=== PATIENT | male | born 1970 | race Caucasian/White ===

== ENCOUNTER 2022-02-26 07:58 | Outpatient (CLI) | payer OTHER, BC, SELFPAY ==
--- NOTE | 2022-02-26 08:15 | MR_ITS ---
[address] [address] Phone:?[phone] Fax:?[phone] Referring Physician Information: Doug Huerta [address] [facility] [address] Phone:?[phone] Fax:?[phone] Patient:Johnie Salazar D.O.B:?1970 Sex:?Male Phone:?[phone] [facility] MRN:?[id number] Exam Date:?02/26/2022 ? EXAM: MRI EXAMINATION OF THE LEFT ELBOW CLINICAL INFORMATION: Left elbow pain. Evaluate common extensor tendon tear. TECHNICAL INFORMATION: Coronal T1 and STIR. Axial, sagittal and coronal PD and T2-weighted images acquired. INTERPRETATION: Bones, joint and osteochondral surfaces: No significant elbow joint effusion. No discrete loose body is seen. No evidence for an occult fracture or osseous contusion. There is a tiny subchondral cyst on series 4 image 13 involving the medial aspect of the radial head. No evidence for a discrete osteochondral lesion. No other abnormal marrow edema pattern identified. Tendons: The biceps, triceps and brachialis tendon insertions are all intact. There is mild to moderate thickening of the common flexor tendon origin. Series 4 images 11 and 12 as well as series 3 images 12 and 13 demonstrate a 0.9 cm AP by 1.2 center craniocaudal poorly defined and low to moderate grade partial- thickness tear involving the tendon origin. Series 3 images 45 and 46 as well as series 4 image 13 demonstrate a 0.6 cm AP by 0.8 cm craniocaudal moderately high-grade partial-thickness tear involving the posterior one half of the common extensor tendon origin. Mild to moderate soft tissue edema signal alongside the posterior aspect of the tendon origin. Ligaments: The ulnar collateral ligament is intact without evidence of acute sprain or tear. The radial collateral and lateral ulnar collateral ligaments appear grossly intact. Nerves: The ulnar nerve appears unremarkable coursing past the elbow and through the cubital tunnel. CONCLUSION: 1. Tendinopathy involves the common extensor tendon origin. This includes a 6 x 8 mm moderately high-grade partial-thickness tear involving the posterior one half of the tendon origin. Mild to moderate adjacent soft tissue inflammatory changes. 2. Tendinopathy with mild to moderate thickening of the common flexor tendon origin. There is a 0.9 x 1.2 cm poorly defined and low to moderate grade partial-thickness tear involving the tendon origin. 3. There is a tiny subchondral cysts involving the radial head, may represent a chronic posttraumatic or early degenerative change. 4. No elbow joint effusion or loose body. KES Electronically signed on 02/26/2022 2:35:00 PM by Van Noble M.D.
== END 2022-02-26 07:59 | disposition home or self-care (01) ==
PROVIDERS: PCP Internal Medicine; Visit Provider Physician Assistant Surgical
DX: M25.522 Pain in left elbow (principal); S46.812A Strain of other muscles, fascia and tendons at shoulder and upper arm level, left arm, initial encounter
CPT/HCPCS: 73221

== ENCOUNTER 2022-05-07 11:00 | Outpatient (RCR) | payer OTHER, BC, SELFPAY ==
--- NOTE | 2022-03-18 17:45 | OT.OPOE ---
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 Fitness no regular fitness Ortho Subjective Subjective Subjective Johnny Salazar is a 52 y/o male who presents w left elbow pain following a work-related injury w initial DOI: 02/05/22. Patient was lifting a 70 lb tote at work, while twisting he felt a sudden, sharp pain in his left elbow. Pain Assessment Pain Present Pain Present Pain Reported Location L elbow Description Throbbing,With Movement, Heaviness Goniometric Comments Goniometric Comments Goniometric Comments AROM WNL for all L SH, elbow, forearm planes. Hyper mobile pattern noted for wrist, can stretch TH tip to touch radius. WR EX is 80 (tender at end range), WR FL to 90, RD 15 ( of 25, with stiffness) and UD 65. Gentle MMT 5/5 EL FL, 4+/5 for triceps tested at multiple angles, Wrist EX in neutral and and radial deviation 4+/5. WE + UD 4+/5. Resisted RD 5 /5. UD 4+/5. Tested automatic buffer and pinch with L hand to 10# limit for pt's educational/insight purposes to support his restrictions. No pain noted Hand Pinch/Time Piece Repairer Strength Hand Right Time Piece Repairer Strength Position 1 (lbs) 97 Lateral Pinch Strength (lbs) 18 Three Point Pinch (lbs) 20 Left Time Piece Repairer Strength Position 1 (lbs) 10 Lateral Pinch Strength (lbs) 10 Three Point Pinch (lbs) 10 Comments Comments Pt gets pain 5-6/10 at left forearm lateral epicondyle/ center point, w gnawing pain, aching after using on steering wheel while doing in lot transitions for light duty . Reduces to 1-2/10 with Advil/Tylenol but will take 3- 4 hours to recover if not taking oral NSAID. (also takes for his feet, knees, back with his heavy labor) Edema Assessment Location Left Edema Type Non-Pitting Degree 1+ Query Text:1+ (Trace) Mild pitting, slight indentation, rapid return to normal 2+ (Mild) Moderate pitting, 4mm indent, rebounds in a few seconds 3+ (Moderate) Deep pitting, 6mm indent, 30 seconds 4+ (Severe) Very deep pitting, 8 mm indent, > 30 seconds to return to normal Edema Appearance Puffy,Stretched Looking Description Subjective Edema Description Pain,Tightness Additional Information Comments L lateral epicondyle, olecranon margin OT Objective Data Hand Hand Dominance Right Sensation Sensation Assessment Summary Comments No senstaion changes or numbness Upper Extremity Special Tests Tenosynovitis Wrist Finklestein Test Negative Left,Negative Right Degenerative Arthritis Hand Trapeziometacarpal Joint Grind Test Negative Left,Negative Right Ulnar Nerve Froment's Sign Negative Left,Negative Right OT Problems Problems Problems Decreased Strength,Decreased Range of Motion,Lifting, Gripping,Pinching Problems Comments decreased safety wtih gripping , lifting, repetitive movements Patient Potential Excellent Assessment Assessment Assessment Pt is an active 52 y/o male who injured L elbow ( at work 02/05/22 with partial tear of common extensor tendon, strain of fascia), who would benefit from skilled OT to address edema, pain, ROM and strength loss of L forearm/elbow with safe progression of activity. Occupational Therapy Treatment Plan - OP Potential Rehabilitation Potential Excellent Set Goals Goals Set with Patient Yes Goals Goals In 8 weeks, Johnny will demonstrate:? 1) Decreased pn to <2/10 80% of the time with sustained gripping, carrying groceries, and carrying 30-50 # loads. 2) I HEP for stretching, gradual strengthening and self mgmt strategies. 3) improved L automatic buffer strength to 85# and pinch to 15# with L elbow pain < 1/10. Progress set Treatment Plan Treatment Plan Evaluation,Joint Mobilization, Manual Therapy,Ultrasound, Therapeutic Exercise,Self-Care /Home Management,Caregiver Training,Education Expected Frequency 1-2x Week Expected Frequency Comments 2x/week x 2 weeks, then 1x/ week x 4 weeks Expected Duration 6-8 Weeks Comment Summary Cont with US, IASSIN, careful progression of resistance eccentric lowering ex to weightbearing, higher resistance. Certification Certification I Certify That: Therapy Services Provided
--- NOTE | 2022-04-16 12:15 | OT.OPODN ---
OT Outpatient Ortho Daily Note OT Outpatient Ortho Daily Note Start: 03/17/22 08:40 Freq: Status: Active Protocol: Document 04/16/22 12:00 TIFFANY (Rec: 04/16/22 12:13 LCN [id number]) E-signed By Radha Garcia OTR/L, CLT Type of Note Type of Note Type of Note Daily Note,Note To MD Visit Number 6 Insurance Information Insurance Information Workman's Comp Outpatient History/Precautions Insurance Information Insurance Information Workman's Comp Current Condition/Medical Diagnosis Referring Provider Antonia Warren PA-C Treatment Diagnosis L elbow pain with partial tear of common extensor tendon, strain of fascia Precautions Lifting Restrictions Other Precautions < 10 # lift, parole hearing officer, pinch Medical/Functional History Medical History Reviewed Yes Social History 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 Fitness no regular fitness Ortho Subjective Subjective Subjective Pt doing well with increase to green therapy band exercises for wrist planes up to 2 sets of 15 reps 1-2x/day. Feels some pulling in his lateral margin of L CET and point tender above Lat epicondyle only during 100% effort gripping with elbow straight, then 3/10 momentary. Other gripping and pinching positions, no pain at all; Kinesiotaping feels helpful. Johnny Salazar is a 52 y/o male who presents w left elbow pain following a work-related injury w initial DOI: 02/05/22. Patient was lifting a 70 lb tote at work, while twisting he felt a sudden, sharp pain in his left elbow. Pain Assessment Pain Present Pain Present Pain Reported Location L elbow Description Throbbing,Chronic,With Movement,Heaviness Intensity 2 OT OP Daily Ortho Note/Assessment Self-Care/Home Management Self-Care/Home Management Minutes ( 0 minutes) Self-Care/Home Management Comments . Therapeutic Exercise Therapeutic Exercise Minutes (minutes) 8 Therapeutic Exercise Comments Upgraded HEP to green therapy band for building endurance, strength and stability of wrist EX (no longer tender at elbow, some at wrist) RD (no longer tender) WR FL and UD no pain. Added chest press and bicep curl, well tolerated x 2-3 sets of 10 reps each. tolerated well, working up to 30 reps, 1-2 x/day frequency recommended. Pt completed 10 reps each of isometric end range holds with flex bar for UD/RD and WE /WF. Shown how he can do soft tissue self mobilization with it and also dynamic oscillation with the yellow flex bar, has info to order it at home. Ultrasound Ultrasound Location & Joint Position L CET/lateral margin Ultrasound Frequency & Mode 1 MHz Continuous Intensity (w/cm2) 1.7 Ultrasound Comments as needed for increased circulation, tissue mobility and to support healing process of L elbow Manual Therapy Manual Therapy Minutes (minutes) 17 Manual Therapy Comments IASTM completed at L CET, medial and lateral margins, olec groove, extensor muscle bulk and around bony prominences to support tissue mobility, improved circulation , reduction of adhesions. Goniometric Comments Goniometric Comments Goniometric Comments AROM WNL for all L SH, elbow, forearm planes. Hyper mobile pattern noted for wrist, can stretch TH tip to touch radius. WR EX is 80 (tender at end range), WR FL to 90, RD 15 ( of 25, with stiffness) and UD 65. Gentle MMT 5/5 EL FL, 4+/5 for triceps tested at multiple angles, Wrist EX in neutral and and radial deviation 4+/5. WE + UD 4+/5. Resisted RD 5 /5. UD 4+/5. Tested parole hearing officer and pinch with L hand to 10# limit for pt's educational/insight purposes to support his restrictions. No pain noted Hand Pinch/Retail Management Trainee Strength Hand Right Retail Management Trainee Strength Position 1 (lbs) 85 Lateral Pinch Strength (lbs) 18 Three Point Pinch (lbs) 20 Left Retail Management Trainee Strength Position 1 (lbs) 78 Retail Management Trainee Strength Position 2 (lbs) 75 Lateral Pinch Strength (lbs) 18 Three Point Pinch (lbs) 24 Comments Comments 04/16/22-- No pain w pos 1 parole hearing officer 78# and pos 2 75# 3/10 at L CET ulnar groove, down extensor muscle bulk ( momentary). 04/04/22--Pn with parole hearing officer test 2/10 in pos 1 70# and pos 2 50# 3/ 10 at L CET. 04/02/22--Pn with parole hearing officer test 5/ 10 pos 1 48# and pos 2 30# 5/ 10 at L CET. At eval-- Pt gets pain 5-6/10 at left forearm lateral epicondyle/ center point, w gnawing pain, aching after using on steering wheel while doing in lot transitions for light duty . Reduces to 1-2/10 with Advil/Tylenol but will take 3- 4 hours to recover if not taking oral NSAID. (also takes for his feet, knees, back with his heavy labor) Edema Assessment Location Left Edema Type Non-Pitting Degree 1+ Query Text:1+ (Trace) Mild pitting, slight indentation, rapid return to normal 2+ (Mild) Moderate pitting, 4mm indent, rebounds in a few seconds 3+ (Moderate) Deep pitting, 6mm indent, 30 seconds 4+ (Severe) Very deep pitting, 8 mm indent, > 30 seconds to return to normal Edema Appearance Puffy,Stretched Looking Description Subjective Edema Description Pain,Tightness Additional Information Comments L lateral epicondyle, olecranon margin OT Objective Data Hand Hand Dominance Right Sensation Sensation Assessment Summary Comments No senstaion changes or numbness Upper Extremity Special Tests Tenosynovitis Wrist Finklestein Test Negative Left,Negative Right Degenerative Arthritis Hand Trapeziometacarpal Joint Grind Test Negative Left,Negative Right Ulnar Nerve Froment's Sign Negative Left,Negative Right OT Problems Problems Problems Decreased Strength,Decreased Range of Motion,Lifting, Gripping,Pinching Problems Comments decreased safety wtih gripping , lifting, repetitive movements Patient Potential Excellent Assessment Assessment Assessment Pt w less point tenderness at CET and epicondyle after OT session; responding well to strengthening and starting to do some gentle lifting at the work place. Pt is an active 52 y/o male who injured L elbow ( at work 02/05/22 with partial tear of common extensor tendon, strain of fascia), who would benefit from skilled OT to address edema, pain, ROM and strength loss of L forearm/elbow with safe progression of activity. Occupational Therapy Treatment Plan - OP Potential Rehabilitation Potential Excellent Set Goals Goals Set with Patient Yes Goals Goals In 8 weeks, Johnny will demonstrate:? (04/16/22-- PROGRESSING STEADILY W ALL GOALS, 3 more OT visits left, 1x/week.) 1) Decreased pn to <2/10 80% of the time with sustained gripping, carrying groceries, and carrying 30-50 # loads. 2) I HEP for stretching, gradual strengthening and self mgmt strategies. 3) improved L parole hearing officer strength to 85# and pinch to 15# with L elbow pain < 1/10. Progress set Treatment Plan Treatment Plan Evaluation,Joint Mobilization, Manual Therapy,Ultrasound, Therapeutic Exercise,Self-Care /Home Management,Caregiver Training,Education Expected Frequency 1-2x Week Expected Frequency Comments 2x/week x 2 weeks, then 1x/ week x 4 weeks Expected Duration 6-8 Weeks Comment Summary Check parole hearing officer pinch per RTC 04/17. Add XTR biceps, chest press w green band, trial of weightbearing and flex bar. Then XTR, weightbearing and dynamic stabilization ex. Cont with US, IASTM, careful progression of resistance eccentric lowering ex to weightbearing, higher resistance. kinesiotaping to manage edema OT Treatment Minutes Treatment Minutes Untimed Treatment Minutes 0 Timed Treatment Minutes 25 Total Timed Treatment Minutes 25 Occupational Therapy Billing Units Billing Units Manual Therapy 1 Therapeutic Activities 0 Therapeutic Exercise 1 Ultrasound 0 Certification Certification I Certify That: Therapy Services Provided
--- NOTE | 2022-04-23 12:24 | OT.OPODN ---
OT Outpatient Ortho Daily Note OT Outpatient Ortho Daily Note Start: 03/17/22 08:40 Freq: Status: Active Protocol: Document 04/23/22 12:08 TIFFANY (Rec: 04/23/22 12:21 LCN [id number]) E-signed By Radha Garcia OTR/L, CLT Type of Note Type of Note Type of Note Daily Note,Note To MD Visit Number 7 Comments RTC 04/15/22 w Antonia, no needed 04/16/22 Insurance Information Insurance Information Workman's Comp Outpatient History/Precautions Insurance Information Insurance Information Workman's Comp Current Condition/Medical Diagnosis Referring Provider Antonia Warren PA-C Treatment Diagnosis L elbow pain with partial tear of common extensor tendon, strain of fascia Precautions Lifting Restrictions Other Precautions < 10 # lift, compensator, pinch Medical/Functional History Medical History Reviewed Yes Social History 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 Fitness no regular fitness Ortho Subjective Subjective Subjective Johnny missed his Ortho appt last week per work conflict. Has been moving lots of heavy furniture at home (while getting new carpeting, entire household), has had no bouts of increased pain or delayed muscle soreness. He is doing well with increase to green therapy band exercises for wrist planes up to 2 sets of 15 reps 1-2x/day and added scapular stability shoulder planes today as well.. Feels some pulling in his lateral margin of L CET and point tender above Lat epicondyle only during 100% effort gripping with elbow straight, then 1-2/10 momentary. Other gripping and pinching positions, no pain at all. Johnny Salazar is a 52 y/o male who presents w left elbow pain following a work-related injury w initial DOI: 02/05/22. Patient was lifting a 70 lb tote at work, while twisting he felt a sudden, sharp pain in his left elbow. Pain Assessment Pain Present Pain Present Pain Reported Location L elbow Description Throbbing,Chronic,With Movement,Heaviness Intensity 2 OT OP Daily Ortho Note/Assessment Self-Care/Home Management Self-Care/Home Management Minutes ( 0 minutes) Self-Care/Home Management Comments . Therapeutic Exercise Therapeutic Exercise Minutes (minutes) 12 Therapeutic Exercise Comments Upgraded HEP to green therapy band for building endurance, strength and stability of B shoulders and L elbow strength with medium green resistance band for B SH HABD, B diagonals, chest press/punch, SH ER and biceps. Tolerated 10 reps with good effort, no pain. Cues for lowering shoulders and scap retraction, keeping elbows EX during SH EX and slower return to build challenge.?? Manual Therapy Manual Therapy Minutes (minutes) 13 Manual Therapy Comments IASTM completed at L CET, medial and lateral margins, olec groove, extensor muscle bulk and around bony prominences to support tissue mobility, improved circulation , reduction of adhesions. Goniometric Comments Goniometric Comments Goniometric Comments At EVAL-- AROM WNL for all L SH, elbow, forearm planes. Hyper mobile pattern noted for wrist, can stretch TH tip to touch radius. WR EX is 80 (tender at end range), WR FL to 90, RD 15 ( of 25, with stiffness) and UD 65. Gentle MMT 5/5 EL FL, 4+/5 for triceps tested at multiple angles, Wrist EX in neutral and and radial deviation 4+/5. WE + UD 4+/5. Resisted RD 5 /5. UD 4+/5. Tested compensator and pinch with L hand to 10# limit for pt's educational/insight purposes to support his restrictions. No pain noted Hand Pinch/Wet Machine Cutter Strength Hand Right Wet Machine Cutter Strength Position 1 (lbs) 85 Lateral Pinch Strength (lbs) 18 Three Point Pinch (lbs) 20 Left Wet Machine Cutter Strength Position 1 (lbs) 86 Wet Machine Cutter Strength Position 2 (lbs) 80 Lateral Pinch Strength (lbs) 18 Three Point Pinch (lbs) 24 Comments Comments 04/23/22--No pain w pos 1 compensator 86# and pos 2 80# 1-2/10 twinge at L CET ulnar groove, momentary) 04/16/22-- No pain w pos 1 compensator 78# and pos 2 75# 3/10 at L CET ulnar groove, down extensor muscle bulk ( momentary). 04/04/22--Pn with compensator test 2/10 in pos 1 70# and pos 2 50# 3/ 10 at L CET. 04/02/22--Pn with compensator test 5/ 10 pos 1 48# and pos 2 30# 5/ 10 at L CET. At eval-- Pt gets pain 5-6/10 at left forearm lateral epicondyle/ center point, w gnawing pain, aching after using on steering wheel while doing in lot transitions for light duty . Reduces to 1-2/10 with Advil/Tylenol but will take 3- 4 hours to recover if not taking oral NSAID. (also takes for his feet, knees, back with his heavy labor) Edema Assessment Location Left Edema Type Non-Pitting Degree 1+ Query Text:1+ (Trace) Mild pitting, slight indentation, rapid return to normal 2+ (Mild) Moderate pitting, 4mm indent, rebounds in a few seconds 3+ (Moderate) Deep pitting, 6mm indent, 30 seconds 4+ (Severe) Very deep pitting, 8 mm indent, > 30 seconds to return to normal Edema Appearance Puffy,Stretched Looking Description Subjective Edema Description Pain,Tightness Additional Information Comments L lateral epicondyle, olecranon margin OT Objective Data Hand Hand Dominance Right Sensation Sensation Assessment Summary Comments No senstaion changes or numbness Upper Extremity Special Tests Tenosynovitis Wrist Finklestein Test Negative Left,Negative Right Degenerative Arthritis Hand Trapeziometacarpal Joint Grind Test Negative Left,Negative Right Ulnar Nerve Froment's Sign Negative Left,Negative Right OT Problems Problems Problems Decreased Strength,Decreased Range of Motion,Lifting, Gripping,Pinching Problems Comments decreased safety wtih gripping , lifting, repetitive movements Patient Potential Excellent Assessment Assessment Assessment Pt w less point tenderness at CET and epicondyle after OT session; responding well to strengthening and starting to do some light sound truck 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 OT plans to see 1-2 more visits for higher level dynamic stability at the overhead level. Pt is an active 52 y/o male who injured L elbow ( at work 02/05/22 with partial tear of common extensor tendon, strain of fascia), who would benefit from skilled OT to address edema, pain, ROM and strength loss of L forearm/elbow with safe progression of activity. Occupational Therapy Treatment Plan - OP Potential Rehabilitation Potential Excellent Set Goals Goals Set with Patient Yes Goals Goals In 8 weeks, Johnny will demonstrate:? (04/16/22-- PROGRESSING STEADILY W ALL GOALS, 3 more OT visits left, 1x/week.) 1) Decreased pn to <2/10 80% of the time with sustained gripping, carrying groceries, and carrying 30-50 # loads. 2) I HEP for stretching, gradual strengthening and self mgmt strategies. 3) improved L compensator strength to 85# and pinch to 15# with L elbow pain < 1/10. Progress set Treatment Plan Treatment Plan Evaluation,Joint Mobilization, Manual Therapy,Ultrasound, Therapeutic Exercise,Self-Care /Home Management,Caregiver Training,Education Expected Frequency 1-2x Week Expected Frequency Comments 2x/week x 2 weeks, then 1x/ week x 4 weeks Expected Duration 6-8 Weeks Comment Summary Check compensator pinch per RTC 04/17. Add weightbearing and dynamic stabilization ex. Cont with IASTM. OT Treatment Minutes Treatment Minutes Untimed Treatment Minutes 0 Timed Treatment Minutes 25 Total Timed Treatment Minutes 25 Occupational Therapy Billing Units Billing Units Manual Therapy 1 Therapeutic Activities 0 Therapeutic Exercise 1 Ultrasound 0 Certification Certification I Certify That: Therapy Services Provided
--- NOTE | 2022-05-07 12:13 | OT.OPODN ---
OT Outpatient Ortho Daily Note OT Outpatient Ortho Daily Note Start: 03/17/22 08:40 Freq: Status: Active Protocol: Document 05/07/22 11:52 LCN (Rec: 05/07/22 12:13 LCN [id number]) E-signed By Rdaha Garcia, OTR/L, CLT Type of Note Type of Note Type of Note Daily Note,Discharge Note,Note To MD Visit Number 9 Comments RTC 05/07/22 w Antonia. 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 Fitness no regular fitness Ortho Subjective Subjective Subjective Tolerating B SH HEP for overhead stability well without pain; No pain with gripping in pos 1. can elicit very momentary pain with pos 2 gripping at highest effort, at Ulnar margin of CET and above lateral epicondyle. Pt has been released to full work duties, in the yard tolerating well. Likely returning to full runs this next week. New driving runs involve [address] with 15 stops, has records management assistant for helping unload heavy overhead head tote loads , uses his R hand mostly, L is guiding hand. Johnny Salazar is a 52 y/o male who presents w left elbow pain following a work-related injury w initial DOI: 02/05/22. Patient was lifting a 70 lb tote at work, while twisting he felt a sudden, sharp pain in his left elbow. Pain Assessment Location L elbow Description With Movement Intensity 2 OT OP Daily Ortho Note/Assessment Self-Care/Home Management Self-Care/Home Management Minutes ( 0 minutes) Self-Care/Home Management Comments . Therapeutic Exercise Therapeutic Exercise Minutes (minutes) 15 Therapeutic Exercise Comments Upgraded HEP to knee push ups for proximal core control and weightbearing/co-contraction stabilization at L elbow, 1-3 sets of 10, focus on engaging core and scapulae. Dynamic stabilization ex in clinic using green double loop band dynamic resistance for applying elbow extension in various hand positions in SH FL, SH ABD, HABD planes for 2 sec holds x 10 reps) Continue forearm stretches, ice when sore, heat if stiff, but pt has not needed this at all for the past 3 weeks. Manual Therapy Manual Therapy Minutes (minutes) 15 Manual Therapy Comments IASTM completed at L CET, medial and lateral margins, olec groove, extensor muscle bulk and around bony prominences to support tissue mobility, improved circulation , reduction of adhesions. Goniometric Comments Goniometric Comments Goniometric Comments 05/07/22- MMT balanced 5/5 for all shoulder, elbow, wrist planes LUE. Sand Miller improve to 98#, no pain in Pos 1. Pos 2 100# with momentary 2/10 pn at L CET. At EVAL-- AROM WNL for all L SH, elbow, forearm planes. Hyper mobile pattern noted for wrist, can stretch TH tip to touch radius. WR EX is 80 (tender at end range), WR FL to 90, RD 15 ( of 25, with stiffness) and UD 65. Gentle MMT 5/5 EL FL, 4+/5 for triceps tested at multiple angles, Wrist EX in neutral and and radial deviation 4+/5. WE + UD 4+/5. Resisted RD 5 /5. UD 4+/5. Tested digital marketing consultant and pinch with L hand to 10# limit for pt's educational/insight purposes to support his restrictions. No pain noted Hand Pinch/Sand Miller Strength Hand Right Sand Miller Strength Position 1 (lbs) 97 Lateral Pinch Strength (lbs) 18 Three Point Pinch (lbs) 20 Left Sand Miller Strength Position 1 (lbs) 98 Sand Miller Strength Position 2 (lbs) 100 Lateral Pinch Strength (lbs) 18 Three Point Pinch (lbs) 24 Comments Comments 04/30/22-- pos 2 96# 2-3/10 twinge at L CET ulnar groove, momentary after highest effort . No pain at 80# effort. 04/23/22--No pain w pos 1 digital marketing consultant 86# and pos 2 80# 1-2/10 twinge at L CET ulnar groove, momentary) 04/16/22-- No pain w pos 1 digital marketing consultant 78# and pos 2 75# 3/10 at L CET ulnar groove, down extensor muscle bulk ( momentary). 04/04/22--Pn with digital marketing consultant test 2/10 in pos 1 70# and pos 2 50# 3/ 10 at L CET. 04/02/22--Pn with digital marketing consultant test 5/ 10 pos 1 48# and pos 2 30# 5/ 10 at L CET. At eval-- Pt gets pain 5-6/10 at left forearm lateral epicondyle/ center point, w gnawing pain, aching after using on steering wheel while doing in lot transitions for light duty . Reduces to 1-2/10 with Advil/Tylenol but will take 3- 4 hours to recover if not taking oral NSAID. (also takes for his feet, knees, back with his heavy labor) Edema Assessment Location Left Edema Type Non-Pitting Degree 1+ Query Text:1+ (Trace) Mild pitting, slight indentation, rapid return to normal 2+ (Mild) Moderate pitting, 4mm indent, rebounds in a few seconds 3+ (Moderate) Deep pitting, 6mm indent, 30 seconds 4+ (Severe) Very deep pitting, 8 mm indent, > 30 seconds to return to normal Edema Appearance Puffy,Stretched Looking OT Objective Data Hand Hand Dominance Right Sensation Sensation Assessment Summary Comments No senstaion changes or numbness Upper Extremity Special Tests Tenosynovitis Wrist Finklestein Test Negative Left,Negative Right Degenerative Arthritis Hand Trapeziometacarpal Joint Grind Test Negative Left,Negative Right Ulnar Nerve Froment's Sign Negative Left,Negative Right OT Problems Problems Problems Decreased Strength,Decreased Range of Motion,Lifting, Gripping,Pinching Problems Comments decreased safety wtih gripping , lifting, repetitive movements Patient Potential Excellent Assessment Assessment Assessment Pt feeling good with all dynamic stabilization exercises, only notes very momentary pain during pos 2 with his highest effort. 70# digital marketing consultant is no pain. All goals are met and he has final HEP today, ready for discharge from OT. Pt is an active 52 y/o male who injured L elbow ( at work 02/05/22 with partial tear of common extensor tendon, strain of fascia), who would benefit from skilled OT to address edema, pain, ROM and strength loss of L forearm/elbow with safe progression of activity. Occupational Therapy Treatment Plan - OP Potential Rehabilitation Potential Excellent Set Goals Goals Set with Patient Yes Goals Goals Discharge summary 05/07/22 All goals met. - In 8 weeks, Johnny will demonstrate:? 1) Decreased pn to <2/10 80% of the time with sustained gripping, carrying groceries, and carrying 30-50 # loads. ( GOAL MET) 2) I HEP for stretching, gradual strengthening and self mgmt strategies. (GOAL MET) 3) improved L digital marketing consultant strength to 85# and pinch to 15# with L elbow pain < 1/10. (Pt will continue to progress this with his home program, pn continues to subside each week ) Progress met Treatment Plan Treatment Plan Evaluation,Joint Mobilization, Manual Therapy,Ultrasound, Therapeutic Exercise,Self-Care /Home Management,Caregiver Training,Education Expected Frequency 1-2x Week Expected Frequency Comments 2x/week x 2 weeks, then 1x/ week x 4 weeks Expected Duration 6-8 Weeks Comment Summary Discharge from OT, returns to Antonia Warren PA-C today. OT Treatment Minutes Treatment Minutes Untimed Treatment Minutes 0 Timed Treatment Minutes 30 Total Treatment Minutes 30 Occupational Therapy Billing Units Billing Units Manual Therapy 1 Therapeutic Activities 0 Therapeutic Exercise 1 Ultrasound 0 Certification Certification I Certify That: Therapy Services Provided Discharge Note Discharge Note Discharge Summary Pt seen for 9 visits of skilled OT per above. Date of First Visit for Therapy 03/17/22 Date of Last Visit for Therapy 05/07/22 Initial Primary Functional Limitations/ Johnny Salazar is an active 52 [place]cerns y/o male who injured L elbow ( at work 02/05/22 with partial tear of common extensor tendon , strain of fascia), who would benefit from skilled OT to address edema, pain, ROM and strength loss of L forearm/ elbow with safe progression of activity. Initial Pain Level 5/10 Pain Level at Discharge 90% of the time no pain; only with pos 2 digital marketing consultant testing, 2/10 momentary pain. Interventions Provided During Treatment Heat,Ice/Cold/Vasopneumatic, Joint Mobilization,Manual Therapy,Therapeutic Exercise, Ultrasound,Self Care/Home Management Recommendations/Reason for Discharge Met All Therapy Goals,Progress Cont w/HEP Discharge Instructions Thanks so much for this thoughtful referral! Radha Garcia, OTR/l CLT
== END 2023-02-19 23:59 | disposition home or self-care (01) ==
PROVIDERS: PCP Internal Medicine; Visit Provider Physician Assistant Surgical
DX: M25.522 Pain in left elbow (principal); Z51.89 Encounter for other specified aftercare
CPT/HCPCS: 97035; 97110; 97140; 97165; 97530; X5282

== ENCOUNTER 2022-07-04 11:30 | Outpatient (CLI) | payer OTHER, BC, SELFPAY ==
--- OUTSIDE RECORDS SUMMARY | 2022-07-04 11:35 | XMS_ITS | Clinical Summary ---
:1970 Author Organization [facility] [place] [address] Care Team Providers Name Role Phone Debra Aguilar MD Primary Care Provider Allergies Active Allergy Reactions Severity Noted Date Comments Banana Itching High 11/13/2020 Shellfish Derived Anaphylaxis High 01/17/2022 Unlisted Allergen (Include Detail In Angioedema High 11/01 Comments) Watermelon Itching 11/13/2020 Medications Medication Sig Dispensed Refills Start Date End Date Status omeprazole Take 1 capsule 0 05/09/2015 Act teressa (PRILOSEC) 20 mg by mouth once Delayed-Release daily before a capsule meal. metFORMIN Take 1 tablet 0 05/30/2019 Activ e (GLUCOPHAGE) 500 by mouth 2 mg tablet times daily with meals. PROAIR HFA 90 Inhale 2 Puffs 0 03/04/2019 Active mcg/actuation by mouth every inhaler 4 hours if needed. fluticasone (50 Inhale 1 [employer] 1 Bottle 0 08/10/2019 Active mcg per in the actuation) nasal nostril(s) once solution daily. (FLONASE) CPAPIndications: As directed. 1 Device 11 09/16/2019 Active MAGGIE (obstructive CPAP machine sleep apnea) for home use at pressure:10 cm/H2O epr 3, Heated humidifier x 1 every 5 years, Humidifier chamber x 1 every 6 months, Full face mask with cushion x 1 every 3 months, Full face cushion 1 every month, 1 headgear 1 every 6 month, heated tubing x 1 every 3 months, Filters: Disposable filter x 2 a month, non-disposable filters x1 every 6 months; chinstrap 1 every 6 months Length of Need: 99 months, Frequency of use: Daily Accu-Chek Grazyna TEST TWICE 0 09/23/2021 Ac tive Plus test strp DAILY NEEDED strip glipiZIDE 0 05/01/2022 Active (GLUCOTROL) 5 mg tablet azithromycin Two tablets the 6 Tablet 0 06/29/2022 Active (Zithromax Z-Job) first day, one 2 250 mg daily days 2-5 tabletIndications : Acute cough, Acute non-recurrent maxillary sinusitis predniSONE Take 2 Tablets 10 Tablet 0 06/29/2022 Act teressa (DELTASONE) 20 mg (40 mg) by 2 tabletIndications mouth once : Acute cough, daily with a Acute meal for 5 non-recurrent days. maxillary sinusitis fexofenadine Take 1 tablet 0 05/09/2015 Di scontinued (IDA) 180 mg by mouth once 2 (*Med tablet daily with a complet e/Regimen meal. complete/L evel of care gonsalo griffin) Active Problems Problem Noted Date MAGGIE 11/29/2004 AHI-15 09/16/2019 Gastroesophageal reflux disease without esophagitis Hallux valgus (acquired) 08/05/2007 ASTHMA NOS W/O STATUS ASTHMATICUS Encounters Date Type Specialty Care Team Description 06/29/2022 Office Visit Alfreda Cannon NP Chest Pa in; Cough; Ear Problem 06/29/2022 Travel from Last 3 Months Social History Tobacco Use Types Packs/Day Years Used Date Former Smoker 0 Quit: 08/03/19 03 Smokeless Tobacco: Never Used Tobacco Cessation: Counseling Given: Yes Alcohol Use Standard Drinks/Week Comments No 0 (1 standard drink = 0.6 oz pure alcoho l) Alcoholic Drinks/day: <1 Sex Assigned at Date Recorded Not on file COVID-19 Exposure Response Date Recorded In the last 10 days, have you been in contact with No / Unsu re 06/29/2022 9:12 AM 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 Obstetrics History Last Filed Vital Signs Vital Sign Reading Time Taken Comments Blood Pressure 132/78 01/17/2022 7:40 PM CDT Pulse 99 06/29/2022 11:06 AM PAPER AND PULP MILL OPERATOR Temperature 36.4 ??C (97.6 ??F) 06/29/2022 9:38 AM PAPER AND PULP MILL OPERATOR Respiratory Rate 16 06/29/2022 9:38 AM PAPER AND PULP MILL OPERATOR Oxygen Saturation 98% 06/29/2022 9:38 AM PAPER AND PULP MILL OPERATOR Inhaled Oxygen Concentration - - Weight 91.2 kg (201 lb 1.6 oz) 06/29/2022 9:38 AM PAPER AND PULP MILL OPERATOR Height 177.8 cm (5' 10) 05/09/2015 2:38 PM CDT Body Mass Index 28.85 05/09/2015 2:38 PM CDT Plan of Treatment Health Maintenance Due Date Last Done Comments COVID-19 vaccine series (#1) 1970 Tdap 02/02/1980 Depression screening for age 12+ 1981 HIV for age 15-65 02/02/1984 BMI (ht and wt on same day) for age 18+ 1987 Hepatitis C screening for age 18-79 1987 Tetanus booster 1989 Colonoscopy through age 75 2014 Lipids for age 45-75 2014 Zoster (shingles) series for age 50+ (1 of 2) 2019 Influenza for age 50-64 04/03/2022 Results Not on filefrom Last 3 Months Insurance Payer Benefit Plan / Subscriber ID Effective Dates Phone Addre ss Type Group BLUE CROSS BLUE CROSS OF [id number] 2020-Present [address] [address] [place] [address] (Work) [id number] [address] [employer] [employer] Employer 08/03/2000 A TTN A/P ADVANTAGE (Home) [address] [place] [address] Care Teams Solar Engineer Relationship Specialty Start Date End Date Debra Aguilar MD PCP - General Internal Medicine 05/09/151999 [place] [address]
[2022-07-04 11:58] LABS: Hemoglobin A1C* 8.3 % (0-5.6)
[2022-07-04 15:18] LABS: Basophils Absolute Auto 0.02 K/uL (0.00-0.30); Basophils Percent Auto 0.4 % (0.0-3.0); Eosinophils Absolute Auto 0.11 K/uL (0.00-0.50); Hematocrit 40.4 % (37.0-53.0); Immature Granulocytes Abs Auto 0.03 K/uL (0.00-0.30); Immature Granulocytes Pct Auto 0.5 %; Lymphocytes Percent Auto 34.5 % (20-44); Mean Corpuscular HGB Conc 35 gm/dL (32-36); Mean Corpuscular Hemoglobin 28 pg (26-34); Mean Corpuscular Volume 80 fL (80-100); Monocytes Percent Auto 6.5 % (0.0-11.0); Neutrophils Absolute Auto 3.08 K/uL (1.7-7.0); Neutrophils Percent Auto 56.1 % (42.0-72.0); Platelet Count* 224 K/uL (140-440); RDW Coefficient of Variation % 12.1 % (11.5-15.5); Red Blood Count 5.08 m/uL (4.30-5.90)
[2022-07-04 15:19] LABS: Chloride* 102 mmol/L (96-114); Potassium* 4.2 mmol/L (3.6-5.1); Sodium* 136 mmol/L (135-149)
[2022-07-04 15:22] LABS: Blood Urea Nitrogen* 22 mg/dL (7-30); Carbon Dioxide* 25 mmol/L (20-32); Creatinine* 0.8 mg/dL (0.5-1.5); Estimated Glomerular Filt Rate 106 ml/min; Glucose* 311 mg/dL (60-115)
[2022-07-04 15:23] LABS: Calcium* 9.6 mg/dL (8.4-10.6)
[2022-07-04 15:38] LABS: Slide Review Reflex No
[2022-07-04 15:42] LABS: Troponin I* 0.31 ng/mL (0.01-0.04)
== END 2022-07-04 11:31 | disposition home or self-care (01) ==
PROVIDERS: PCP Internal Medicine; Visit Provider Nurse Practitioner Family
DX: E11.9 Type 2 diabetes mellitus without complications (principal); R07.9 Chest pain, unspecified; E78.1 Pure hyperglyceridemia
CPT/HCPCS: 80048; 83036; 84484; 85025

== ENCOUNTER 2022-07-08 07:37 | Outpatient (CLI) | payer BC, SELFPAY ==
--- OUTSIDE RECORDS SUMMARY | 2022-07-08 07:40 | XMS_ITS | Clinical Summary ---
:1970 Author Organization [facility] [place] [address] Care Team Providers Name Role Phone Debra [...] hours if needed. fluticasone (50 Inhale 1 [place] 1 Bottle 0 08/10/2019 Active mcg per [...] 0 05/01/2022 Active (GLUCOTROL) 5 mg tablet fexofenadine Take 1 tablet 0 05/09/2015 Di scontinued (IDA) 180 mg by mouth once 2 (*Med tablet daily with a complet e/Regimen meal. complete/L evel of care gaby) azithromycin Two tablets the 6 Tablet 0 06/29/2022 (Zithromax Z-Job) first day, one 2 250 mg daily days 2-5 tabletIndications : Acute cough, Acute non-recurrent maxillary sinusitis predniSONE Take 2 Tablets 10 Tablet 0 06/29/2022 Exp ired (DELTASONE) 20 mg (40 mg) by 2 tabletIndications mouth once : Acute cough, daily with a Acute meal for 5 non-recurrent days. maxillary sinusitis Active Problems Problem Noted Date MAGGIE 11/29/2004 [...] No / Unsu re 06/29/2022 9:12 AM STRUCTURAL ARCHITECT someone who was confirmed or suspected to have Coronavirus/COVID-19? Obstetrics History Last Filed Vital Signs Vital Sign Reading Time Taken Comments Blood Pressure 132/78 01/17/2022 7:40 PM CDT Pulse 99 06/29/2022 11:06 AM STRUCTURAL ARCHITECT Temperature 36.4 ??C (97.6 ??F) 06/29/2022 9:38 AM STRUCTURAL ARCHITECT Respiratory Rate 16 06/29/2022 9:38 AM STRUCTURAL ARCHITECT Oxygen Saturation 98% 06/29/2022 9:38 AM STRUCTURAL ARCHITECT Inhaled Oxygen Concentration - - Weight 91.2 kg (201 lb 1.6 oz) 06/29/2022 9:38 AM STRUCTURAL ARCHITECT Height 177.8 cm (5' 10) 05/09/2015 2:38 PM CDT Body Mass Index 28.85 05/09/2015 2:38 PM CDT Plan of Treatment Upcoming Encounters Date Type Specialty Care Team Description 07/08/2022 Orders Only Alexandrea Paez 07/08/2022 Orders Only Alexandrea Paez Health Maintenance Due Date Last Done Comments [...] Type Group BLUE CROSS BLUE CROSS OF [id number] 2020-Present [address] [address] [place] [address] (Work) [id number] [address] [facility] [employer] Employer 08/03/2000 A TTN A/P ADVANTAGE (Home) [address] [place] [address] Care Teams Carrot Harvester Relationship Specialty Start Date End Date Debra Aguilar MD PCP - General Internal Medicine 10/7/15 2000 [place] [address]
--- NOTE | 2022-07-08 08:00 | CRLHL7_ITS ---
For Patients: As a result of the Century Cures Act, medical imaging exams and procedure reports are released immediately into your electronic medical record. You may view this report before your referring provider. If you have questions, please contact your health care provider. [facility] ??? [facility] MYOCARDIAL PERFUSION SCAN, 07/08/2022 CLINICAL HISTORY: 52-year-old male with elevated troponin levels. TECHNIQUE: (Resting SPECT and Stress Gated SPECT with wall motion and ejection fraction) Stress: Pharmacologic - Regadenoson (0.4 mg) (IV) Dose (Stress/Rest): 32.7 mCi / 8.6 mCi Tc-99m Sestamibi Comparison: None FINDINGS: There is good uptake of the radiotracer by the left ventricle. There is mild left ventricular dilatation with an end diastolic volume of 174 cc. There is a medium to large transmural infarct involving the anterior, anteroseptal wall of the left ventricle, base to apex. There is a transmural infarct involving the apical inferior wall and apex of the left ventricle. Mild area of reversibility is identified in the mid and apical anterolateral wall of the left ventricle. Mild associated periinfarct ischemia is also noted. Gated images demonstrate left ventricular ejection fraction to be abnormally low at 34 percent. Hypokinesis in the infarct zone is noted. IMPRESSION: 1. 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 2. There is mild ischemia identified in the mid and apical anterolateral wall of the left ventricle. Mild associated periinfarction ischemia is also noted. 3. Abnormal low left ventricular ejection fraction is identified at 34 percent. Hypokinesis in the infarction zone is noted. 4. Mild left ventricular dilatation is identified with an end diastolic volume of 174 cc. 5. Critical finding discussed with Arnold Brooks CNP 07/09/22 @0930 Derrick Shen M.D. Diagnostic/Nuclear Medicine Radiologist [email or web address] PRR/candis chirinos/Dictated by: Derrick Shen MD @ 07/08/2022 4:48:00 PM (Electronically Signed)
[2022-07-08 09:44] VITALS: BP 118/74; PULSE 99; RESP 16
[2022-07-08] MEDS: REGADENOSON 0.4 MG/5 ML SYRINGE IVP ×2 (09:44→11:47)
[2022-07-08] MEDS: SODIUM CHLORIDE 0.9 % (FLUSH) 10 ML SYRINGE IVF ×2 (09:44→11:47)
--- NOTE | 2022-07-08 09:45 | W.PM.STED ---
Stress Test Note Date Date Seen: 07/08/22 Date of test: 07/08/22 Providers Referring provider: Hui Brooks Primary care provider: Debra Aguilar Stress test physician: Alia Reed Stress Test Note Stress test ordered: Lexiscan Indication for test: Abn troponin, diabetes. Stress test medicine: Lexiscan Results discussion: Unfortunately, radioisotope infiltrated on the 1st test. We were able to obtain 2nd dose of isotope and had the patient return once it was here. Patient started the Lexiscan a 2nd time. The regadenoson infusions both times were without incident. Patient completed a walking Lexiscan protocol. He had no significant symptoms. No concerning blood pressure issues. No arrhythmias, no significant EKG changes of ischemia. Patient was discharged to get his post exercise imaging at the appropriate timing. Will await those images to be read to couple this for a full formal diagnostic. Impression: Subjectively negative, objectively negative EKG portion of this Lexiscan. Follow up suggested: Patient will be discharged once he has had his post stress imaging done. He will await a phone call from Arnold Brooks NP when she has the final imaging test results back.
== END 2022-07-08 11:30 | disposition home or self-care (01) ==
LOC: STRESS 07:38
PROVIDERS: PCP Internal Medicine; Visit Provider Nurse Practitioner Family
DX: R77.8 Other specified abnormalities of plasma proteins (principal); I25.9 Chronic ischemic heart disease, unspecified; R07.9 Chest pain, unspecified; R06.09 Other forms of dyspnea
CPT/HCPCS: 78452; 93016; 93017; A9500; J2785

== ENCOUNTER 2022-07-25 08:42 | Outpatient (CLI) | payer BC, SELFPAY ==
[2022-07-25 10:49] LABS: Albumin* 4.8 g/dL (3.3-5.0); Chloride* 102 mmol/L (96-114); Sodium* 136 mmol/L (135-149)
[2022-07-25 10:50] LABS: Potassium* 4.6 mmol/L (3.6-5.1)
[2022-07-25 10:51] LABS: Cholesterol* 70 mg/dL (90-199)
[2022-07-25 10:52] LABS: Alanine Aminotransferase* 41 U/L (4-50); Alkaline Phosphatase* 64 U/L (40-150); Aspartate Amino Transferase* 30 U/L (12-35); Bilirubin Total* 0.8 mg/dL (0.1-1.5); Blood Urea Nitrogen* 20 mg/dL (7-30); Calcium* 9.8 mg/dL (8.4-10.6); Carbon Dioxide* 25 mmol/L (20-32); Creatinine* 0.8 mg/dL (0.5-1.5); Estimated Glomerular Filt Rate 106 ml/min; Glucose* 141 mg/dL (60-115); Total Protein* 7.2 g/dL (6.0-8.3); Triglycerides* 90 mg/dL (40-149)
[2022-07-25 10:53] LABS: HDL Cholesterol* 32 mg/dL (>=40); LDL Cholesterol Calculated 20 mg/dL (<100)
== END 2022-07-25 08:43 | disposition home or self-care (01) ==
PROVIDERS: PCP Internal Medicine; Visit Provider Family Medicine
DX: E78.5 Hyperlipidemia, unspecified (principal); I21.9 Acute myocardial infarction, unspecified; Z95.5 Presence of coronary angioplasty implant and graft
CPT/HCPCS: 80053; 80061

== ENCOUNTER 2022-11-25 08:20 | Outpatient (CLI) | payer BC, SELFPAY | END 2022-11-25 08:21 | disposition home or self-care (01) | LOC: NFLDREF 15:46 | PROVIDERS: PCP Internal Medicine; Referring Provider Internal Medicine; Visit Provider Internal Medicine | DX: E78.1 Pure hyperglyceridemia (principal); E11.9 Type 2 diabetes mellitus without complications | CPT/HCPCS: 80053; 80061; 82043; 82570 ==

== ENCOUNTER 2024-01-19 08:00 | Outpatient (CLI) | payer BC, SELFPAY ==
--- OUTSIDE RECORDS SUMMARY | 2024-01-22 20:51 | XMS_ITS | Clinical Summary ---
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 0 05/09/2015 Active PROAIR HFA 90 mcg/actuation inhaler Inhale 2 Puffs by mouth every 4 hours if needed. 03/04/2019 Active fluticasone (50 mcg per actuation) nasal solution (FLONASE) Inhale 1 Etters in the nostril(s) once daily. 1 Bottle 08/10/2019 Active CPAPIndications:MAGGIE (obstructive sleep apnea) As directed. CPAP machine for home use at pressure:10 cm/H2O epr [...] Need: 99 months, Frequency of use: Daily 1 Device 11 09/16/2019 Active Accu-Chek Grazyna Plus test strp strip TEST TWICE DAILY NEEDED 09/23/2021 Active nitroglycerin (NITROSTAT) 0.4 mg sublingual tabletIndications:Fadumo na pectoris, crescendo (HC) Place 1 Tablet (0.4 mg) under the tongue every 5 minutes if needed for Chest Pain. If symptoms do not resolve after 3 doses, call 911. 25 Tablet 1 07/11/2022 Active aspirin chewable 81 mg chewable tablet Chew 1 Tablet (81 mg) by mouth once daily. 0 07/17/2022 Active metFORMIN (GLUCOPHAGE) 1,000 mg tablet Take 1,000 mg by mouth two times daily. Active glipiZIDE (GLUCOTROL) 10 mg tablet Take 10 mg by mouth two times daily before meals. Active fenofibrate nanocrystallized (TRICOR) 145 mg tabletIndications:Hype rtriglyceridemia,Mixed dyslipidemia,Coronary artery disease involving [place] heart, unspecified vessel or lesion type, unspecified whether angina present,ST elevation myocardial infarction involving left anterior descending (LAD) coronary artery (HC),Status post insertion of drug-eluting stent into left anterior descending (LAD) artery for coronary artery disease Take 1 Tablet (145 mg) by mouth once daily with a meal. 30 Tablet 2 07/18/2022 Active ticagrelor (BRILINTA) 90 mg tabletIndications:Amanda nary artery disease, unspecified vessel or lesion type, unspecified whether angina present, unspecified whether [place] or transplanted heart Take 1 Tablet (90 mg) by mouth two times daily. Take for 1 year without interruption. 180 Tablet 3 07/30/2022 Active valsartan (DIOVAN) 80 mg tabletIndications:Card iovascular symptoms,Coronary artery disease, unspecified vessel or lesion type, unspecified whether angina present, unspecified whether [place] or transplanted heart,Chest pain, unspecified type,ST elevation myocardial infarction involving left anterior descending (LAD) coronary artery (HC),Status post insertion of drug-eluting stent into left anterior descending (LAD) artery for coronary artery disease,Cardiomyopathy , unspecified type (HC),HFrEF (heart failure with reduced ejection fraction) (HC),Hyperlipidemia, unspecified hyperlipidemia type TAKE 1 TABLET DAILY 90 Tablet 3 08/29/2023 Active rosuvastatin (CRESTOR) 40 mg tabletIndications:Card iovascular symptoms,Coronary artery disease, unspecified vessel or lesion type, unspecified whether angina present, unspecified whether [place] or transplanted heart,Chest pain, unspecified type,ST elevation myocardial infarction involving left anterior descending (LAD) coronary artery (HC),Status post insertion of drug-eluting stent into left anterior descending (LAD) artery for coronary artery disease,Cardiomyopathy , unspecified type (HC),HFrEF (heart failure with reduced ejection fraction) (HC),Hyperlipidemia, unspecified hyperlipidemia type TAKE 1 TABLET DAILY 90 Tablet 3 08/29/2023 Active ezetimibe (ZETIA) 10 mg tabletIndications:Card iovascular symptoms,Coronary artery disease, unspecified vessel or lesion type, unspecified whether angina present, unspecified whether [place] or transplanted heart,Chest pain, unspecified type,ST elevation myocardial infarction involving left anterior descending (LAD) coronary artery (HC),Status post insertion of drug-eluting stent into left anterior descending (LAD) artery for coronary artery disease,Cardiomyopathy , unspecified type (HC),HFrEF (heart failure with reduced ejection fraction) (HC),Hyperlipidemia, unspecified hyperlipidemia type TAKE 1 TABLET DAILY 90 Tablet 3 08/29/2023 Active metoprolol succinate (TOPROL XL) 25 mg Sustained-Release tabletIndications:Fadumo na pectoris, crescendo (HC) TAKE 1 TABLET DAILY 90 Tablet 3 08/29/2023 Active Active Problems Problem Noted Date Diagnosed Date Type 2 diabetes mellitus without complication Systolic heart failure 07/16/2022 Abnormal nuclear stress test 07/16/2022 MAGGIE on CPAP 07/16/2022 Chest pain 07/16/2022 MAGGIE 11/29/2004 AHI-15 09/16/2019 Gastroesophageal reflux disease without esophagi tis 09/16/2019 Hallux valgus (acquired) 08/05/2007 ASTHMA NOS W/O STATUS ASTHMATICUS Social History Tobacco Use Types Packs/Day Years Used Date Smoking Tobacco: Former Cigarettes Q uit: 08/03/2002 Smokeless Tobacco: Never Tobacco Cessation:Counseling Given: Yes Alcohol Use Standard Drinks/Week Comments No 0 (1 standard drink = 0.6 oz pur e alcohol) Alcoholic Drinks/day: <1 PHQ-2 Answer Date Recorded PHQ-2 TOTAL SCORE 0 08/21/2022 Social Connections Answer Date Recorded Frequency of Communication with Friends and Fami ly Not on file 07/11/2022 Financial Resource Strain Answer Date R ecorded Difficulty of Paying Living Expenses Not on file 08/03/2021 Difficulty of Paying Living Expenses Not on file 08/03/2021 Sex and Gender Information Value Date Recorded Sex Assigned at Not on file Gender Identity Not on file Sexual Orientation Not on file Obstetrics History Last Filed Vital Signs Vital Sign Reading Time Taken Comments Blood Pressure 110/74 02/05/2023 3:23 PM CDT Pulse 71 02/05/2023 3:23 PM CDT Temperature 36.6 ??C (97.8 ??F) 07/17/2022 7:39 AM CS T Respiratory Rate 18 08/21/2022 12:00 PM ROPE TIER Oxygen Saturation 96% 02/05/2023 3:23 PM CDT Inhaled Oxygen Concentration - - Weight 91.4 kg (201 lb 8 oz) 02/05/2023 3:23 PM CDT Height 177.8 cm (5' 10) 02/05/2023 3:23 PM CDT Body Mass Index 28.91 02/05/2023 3:23 PM CDT Plan of Treatment Health Maintenance Due Date Last Done Comments Pneumococcal series for age 6-64 (1 of 2 - PCV) 1975 Tdap 02/02/1980 HIV for age 15-65 02/02/1984 Hepatitis C screening for ag e 18-79 1987 Hepatitis B series for Diabe zaki (1 of 3 - 19+ 3-dose series) 02/02/1988 Tetanus booster 1989 Colonoscopy through age 75 2014 Zoster (shingles) series for age 50+ (1 of 2) 2019 COVID-19 vaccine series ( - 2022-24 season) 2023 Depression screening for age 12+ 08/25/2023 08/25/19 23, 08/21/2022 BMI (ht and wt on same day) for age 18+ 02/06/2024 02/05/2023, 07/30/2022, 07/11/2022 Influenza for age 50-64 04/03/2024 Lipids for age 45-75 02/06/2028 02/05/2023, 02/05/2023, 07/16/2022, Additional history exists Procedures Procedure Name Priority Date/Time Associated Diagnosis Comments LIPID PANEL Routine 02/05/2023 4:11 PM CDT Hypertension from Last 3 Months or Most Recently Relevant to Health Maintenance Results * (ABNORMAL) LIPID PANEL (02/05/2023 4:11 PM CDT) CHOLESTEROL,TOTAL 90(L) 100 - 199 mg/dL 02/06/2023 5:33 PM CDT [facility] Comment: Cholesterol, Total Reference Ranges Desirable <200 mg/dL Borderline 200-239 mg/dL High >=240 mg/dL TRIGLYCERIDES 266(H) <150 mg/dL 02/06/2023 5:33 PM CDT [facility] HDL CHOLESTEROL 27(L) >40 mg/dL 5:33 PM CDT [facility] NON-HDL CHOLESTEROL 63 <145 mg/dl 02/06/2023 5:33 PM CDT [facility] CHOL/HDL RATIO 3.33 <4.50 02/06/2023 5:33 PM CDT [facility] LDL CHOLESTEROL 10 <=130 mg/dL 02/06/2023 5:33 PM CDT [facility] VLDL CHOLESTEROL 53(H) <=30 mg/dL 02/06/2023 5:33 PM CDT [facility] PROVIDER ORDERED STATUS RANDOM 02/06/2023 5:33 PM CDT [facility] Blood BLOOD SPECIMEN / Unknown Venipuncture / Unknown 02/05/2023 4:11 PM CDT 02/05/2023 4:11 PM CDT David Tomlinson MD CHEMISTRY [facility] 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
== END 2024-01-19 08:01 | disposition home or self-care (01) ==
LOC: NFLDREF 01-22 20:49
PROVIDERS: PCP Internal Medicine; Referring Provider Internal Medicine; Visit Provider Internal Medicine
DX: E11.29 Type 2 diabetes mellitus with other diabetic kidney complication (principal); R80.9 Proteinuria, unspecified; E78.1 Pure hyperglyceridemia
CPT/HCPCS: 80053; 80061; 82043; 82570

== ENCOUNTER 2024-07-11 15:55 | Outpatient (CLI) | payer BC, SELFPAY | END 2024-07-11 15:56 | disposition home or self-care (01) | PROVIDERS: PCP Internal Medicine; Referring Provider Internal Medicine; Visit Provider Internal Medicine | DX: E11.29 Type 2 diabetes mellitus with other diabetic kidney complication (principal); R80.9 Proteinuria, unspecified; E78.1 Pure hyperglyceridemia | CPT/HCPCS: 80053; 80061; 82043; 82570 ==

== ENCOUNTER 2025-03-31 16:00 | Outpatient (CLI) | payer BC, SELFPAY | END 2025-03-31 16:01 | disposition home or self-care (01) | LOC: NFLDREF 04-04 07:54 | PROVIDERS: PCP Internal Medicine; Referring Provider Internal Medicine; Visit Provider Internal Medicine | DX: E11.29 Type 2 diabetes mellitus with other diabetic kidney complication (principal); R80.9 Proteinuria, unspecified; E78.1 Pure hyperglyceridemia; Z79.84 Long term (current) use of oral hypoglycemic drugs | CPT/HCPCS: 80053; 80061; 82043; 82570 ==